=== PATIENT | male | born 1995 | race Caucasian/White ===

== ENCOUNTER 2018-02-16 12:14 | Emergency (ER) | payer OTHER ==
[~2018-02-16] VITALS: Ht 170.2 cm; Wt 97.5 kg
[2018-02-16 12:48] LABS: ABSOLUTE BASOPHIL COUNT 0 /CUMM (0.0-0.2); ABSOLUTE EOSINOPHIL COUNT 0 /CUMM (0.0-0.7); ABSOLUTE GRANULOCYTE CT 4.4 /CUMM (1.4-6.5); ABSOLUTE LYMPH COUNT 1.4 /CUMM (1.2-3.4); ABSOLUTE MONOCYTE COUNT 0.4 /CUMM (0.10-0.60); BASOPHIL % 0.3 % (0.0-2.0); EOSINOPHIL % 0.5 % (0-5); HEMATOCRIT 49.4 % (42-52); MEAN CORPUSCULAR HGB 32.3 PG (27.0-31.0); MEAN CORPUSCULAR HGB CONC 34.5 G/DL (33.0-37.0); MEAN CORPUSCULAR VOLUME 93.6 FL (80.0-94.0); MEAN PLATELET VOLUME 7.8 FL (7.4-10.4); PLATELET COUNT 271 /CUMM (130-400); RBC DISTRIBUTION WIDTH 11.9 % (11.5-14.5); RED BLOOD CELL CT 5.28 /CUMM (4.70-6.10); WHITE BLOOD CELL COUNT 6.2 /CUMM (4.8-10.8)
--- NOTE | 2018-02-16 15:18 | ED GI/GU/ABDOMINAL COMPLAINT ---
History of Present Illness General Chief Complaint: Nausea, Vomiting, Diarrhea Stated Complaint: VOMTIING Source: patient, family Exam Limitations: no limitations Vital Signs & Intake/Output Vital Signs & Intake/Output Vital Signs Date Time Temp Pulse Resp B/P B/P Pulse O2 O2 Flow FiO2 Mean Ox Delivery Rate 02/16 1655 95 18 131/70 Room Air 02/16 1537 Room Air 02/16 1219 97.2 70 20 157/88 98 Room Air Allergies Coded Allergies: No Known Drug Allergies (Intermediate, NONE 02/16/18) Reconcile Medications Famotidine (Pepcid) 20 MG TABLET 1 TAB PO BID GASTRITIS Multiple Vitamin (Multivitamins) 1 EACH TABLET 1 TAB PO DAILY SUPPLEMENT ( Reported) Ondansetron (Zofran Odt) 4 MG TAB.RAPDIS 1 TAB SL TID PRN NAUSEA Triage Note: C/O EPIGASTRIC PAIN, NAUSEA AND VOMITING X 2 DAYS. Triage Nurses Notes Reviewed? yes HPI: Patient presents with a three-day history of epigastric burning pain radiating up into his chest. Patient was seen by his laundry operator and was diagnosed with heartburn. Patient is been taking Rolaids at home without relief. Yesterday patient began vomiting. Patient states he is unable to keep anything down. He continues to have a burning pain substernally and epigastrically. There are no aggravating or mitigating factors. He denies any diarrhea. He rates the heartburn at 4 out of 10. Patient states his urine is very dark. Past History Travel History Traveled to [place] past 21 day No Medical History Any Pertinent Medical History? none Neurological: NONE EENT: NONE Cardiovascular: NONE Respiratory: NONE Gastrointestinal: NONE Hepatic: NONE Renal: NONE Musculoskeletal: NONE Psychiatric: NONE Endocrine: NONE Surgical History Surgical History: non-contributory Psychosocial History What is your primary language Macedonian Tobacco Use: Never used ETOH Use: occasional use Illicit Drug Use: denies illicit drug use Family History Hx Contributory? No Review of Systems Review of Systems Constitutional: Reports: no symptoms. EENTM: Reports: no symptoms. Respiratory: Reports: no symptoms. Cardiovascular: Reports: no symptoms. GI: Reports: see HPI, abdominal pain, nausea, vomiting. Genitourinary: Reports: no symptoms. Musculoskeletal: Reports: no symptoms. Skin: Reports: no symptoms. Neurological/Psychological: Reports: no symptoms. Hematologic/Endocrine: Reports: no symptoms. Immunologic/Allergic: Reports: no symptoms. All Other Systems: Reviewed and Negative Physical Exam Physical Exam General Appearance: well developed/nourished, alert, awake, anxious, mild distress Head: atraumatic, normal appearance Eyes: Bilateral: PERRL, EOMI, other (ANICTERIC). Ears, Nose, Throat, Mouth: hearing grossly normal, DRY MUCOSA Neck: normal inspection, supple, full range of motion Respiratory: normal breath sounds, chest non-tender, no respiratory distress, lungs clear Cardiovascular: regular rate/rhythm, normal peripheral pulses Gastrointestinal: normal bowel sounds, soft, non-tender, no organomegaly Back: normal inspection, normal range of motion Extremities: normal range of motion Neurologic/Psych: no motor/sensory deficits, awake, alert, oriented x 3, normal gait, normal mood/affect Core Measures ACS in differential dx? No Sepsis Present: No Sepsis Focused Exam Completed? No Progress Differential Diagnosis: biliary colic, cholecystitis, gastritis, hepatitis, ischemic bowel, inflamm bowel dis, pancreatitis Plan of Care: Orders Procedure Date/time Status LIPASE 02/16 1222 Complete COMPREHENSIVE METABOLIC PANEL 02/16 1222 Complete CBC WITHOUT DIFFERENTIAL 02/16 1222 Complete AMYLASE 02/16 1222 Complete Laboratory Tests 02/16/18 1238: Anion Gap 14, Estimated GFR > 60, BUN/Creatinine Ratio 14.4, Glucose 93, Calcium 10.6 H, Total Bilirubin 1.3, AST 18, ALT 29, Alkaline Phosphatase 67, Total Protein 8.7 H, Albumin 5.3 H, Globulin 3.4, Albumin/Globulin Ratio 1.6, Amylase 90, Lipase 32, CBC w Diff NO MAN DIFF REQ, RBC 5.28, MCV 93.6, MCH 32.3 H, MCHC 34.5, RDW 11.9, MPV 7.8, Gran % 71.0, Lymphocytes % 22.4, Monocytes % 5.8, Eosinophils % 0.5, Basophils % 0.3, Absolute Granulocytes 4.4, Absolute Lymphocytes 1.4, Absolute Monocytes 0.4, Absolute Eosinophils 0, Absolute Basophils 0 Initial ED EKG: none Comments: Patient is feeling better after IV Pepcid, IV Zofran and IV fluids. Departure Departure Disposition: HOME OR SELF CARE Condition: Stable Clinical Impression Primary Impression: Gastritis Referrals: Mode Diez MD (PCP/Family) Additional Instructions: Take Pepcid as prescribed. Take Zofran as needed for nausea. Return if symptoms worsen or for any concerns. Departure Forms: Customer Survey General Discharge Information Prescriptions: Current Visit Scripts Famotidine (Pepcid) 1 TAB PO BID #28 TAB Ondansetron (Zofran Odt) 1 TAB SL TID PRN NAUSEA #10 TAB
[2018-02-16] MEDS ORDERED: MULTIVITAMINS1 EAC9 PO (15:22)
[2018-02-16] MEDS ORDERED: PEPCID20 M1 PO (16:26)
[2018-02-16] MEDS ORDERED: ZOFRAN ODT4 M1 SL (16:26)
[2018-02-16 16:55] VITALS: BP 131/70
== END 2018-02-16 17:16 ==
LOC: ERH 12:14
PROVIDERS: Physician Assistant
DX: K29.70 Gastritis, unspecified, without bleeding (principal)
CPT/HCPCS: 96361; 96374; 96375; J2405